=== PATIENT | female | born 1970 | race Caucasian/White ===

== ENCOUNTER 2017-06-07 13:05 | Emergency (ER) | payer OTHER ==
[~2017-06-07] VITALS: Ht 160 cm; Wt 56.0 kg
[2017-06-07 13:17] VITALS: BP 146/89; PULSE 58; RESP 24; TEMP 97.8; O2SAT 99
[2017-06-07] MEDS ORDERED: SYNT25TA PO (13:43)
[2017-06-07] MEDS ORDERED: MIDAZOLAM HCL 5 MG/5 ML VIAL IV PUSH ONE (13:45)
[2017-06-07] MEDS ORDERED: MORPHINE SULFATE 4 MG/ML INJ IV PUSH ONE (13:45)
--- NOTE | 2017-06-07 13:55 | PD ---
HPI Chief Complaint: Facial Pain or Swelling Time Seen by Provider: 13:40 Travel History International Travel<30 days: No Contact w/Intl Traveler<30days: No Traveled to known affect area: No History of Present Illness HPI This is a 46-year-old female who presents with family members for evaluation of inability to close mouth. Symptoms started today [place] swimming [place] the beach. She reports multiple episodes of and fibular dislocation in the past, typically secondary to seizures. She had no seizure today. This dislocation was spontaneous. She is having some discomfort associated with it. Denies any facial trauma. She has no other complaints at this time. [facility] Past Medical History ?: Not LMP: now Social History Alcohol Use: No Tobacco Use: No Substance Use: No Allergies-Medications (Allergen,Severity, Reaction): Coded Allergies: Morphine (Verified Allergy, Severe, 06/07/17) Reported Meds & Prescriptions Reported Meds & Active Scripts Active Reported Synthroid (Levothyroxine Sodium) 25 Mcg Tab 25 Mcg PO DAILY Review of Systems Except as stated in HPI: all other systems reviewed are Neg Physical Exam Narrative GENERAL: Well-developed well-nourished female who appears uncomfortable. SKIN: Warm and dry. HEAD: Atraumatic. Normocephalic. EYES: Pupils equal and round. No scleral icterus. No injection or drainage. ENT: No nasal bleeding or discharge. Mucous membranes pink and moist. The patient's jaw is locked in open position. NECK: Trachea midline. No JVD. CARDIOVASCULAR: Regular rate and rhythm. No murmur appreciated. RESPIRATORY: No accessory muscle use. Clear to auscultation. Breath sounds equal bilaterally. GASTROINTESTINAL: Abdomen soft, non-tender, nondistended. Hepatic and splenic margins not palpable. MUSCULOSKELETAL: No obvious deformities. No clubbing. No cyanosis. No edema. NEUROLOGICAL: Awake and alert. No obvious cranial nerve deficits. Motor grossly within normal limits. Normal speech. PSYCHIATRIC: Appropriate mood and affect; insight and judgment normal. Data Data Last Documented VS Vital Signs Date Time Temp Pulse Resp B/P Pulse Ox O2 Delivery O2 Flow Rate FiO2 06/07/17 14:50 100 2.00 06/07/17 14:41 52 20 142/68 06/07/17 13:17 97.8 Room Air Orders Midazolam Inj (Versed Inj) (06/07/17 13:45) Iv Access Insert/Monitor (06/07/17 13:42) Morphine Inj (Morphine Inj) (06/07/17 13:45) Midazolam Inj (Versed Inj) (06/07/17 14:00) Oximetry (06/07/17 14:07) Diphenhydramine Inj (Benadryl Inj) (06/07/17 14:15) Methylprednisolone So Succ Inj (Solumedr (06/07/17 14:15) Famotidine Inj (Pepcid Inj) (06/07/17 14:15) Sodium Chloride 0.9% Flush (Ns Flush) (06/07/17 14:15) Diphenhydramine Inj (Benadryl Inj) (06/07/17 14:08) MDM Medical Decision Making Medical Screen Exam Complete: Yes Emergency Medical Condition: Yes Medical Record Reviewed: Yes Differential Diagnosis Mandibular dislocation, masseter muscle spasm, fracture, tetanus Narrative Course This is a 46-year-old female who 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 She since with a spontaneous mandibular dislocation that occurred today while at the beach. The patient signed consent forms and closed reduction was achieved under sedation, please see Dr. Stratton's procedural note. She developed a small amount of hives around the IV site on the left arm after the administration of morphine. She was given H1 and H2 antihistamines and Solu -Medrol with improvement in her symptoms. She was monitored for some time. She is stable for discharge. Diagnosis Primary Impression: Closed dislocation of mandible Qualified Code: S03.00XA - Closed dislocation of mandible, initial encounter Additional Impression: Hives Additional Instructions: Follow-up with primary care physician. Return for any emergent medical conditions. Med/Other Pt SpecificInfo: No Change to Meds Disposition: 01 DISCHARGE HOME Condition: Stable Alberto Hernandes Jun 07, 2017 13:55
[2017-06-07] MEDS ORDERED: MIDAZOLAM HCL 5 MG/ML VIAL (1 ML) IV PUSH ONE (14:00)
[2017-06-07] MEDS ORDERED: diphenhydrAMINE HCL 50 MG/ML VIAL ONE (14:08)
[2017-06-07] MEDS ORDERED: methylPREDNISolone SOD SUCC 125 MG/2 ML VIAL IVP ONE (14:15)
[2017-06-07] MEDS ORDERED: diphenhydrAMINE HCL 50 MG/ML VIAL IVP ONE (14:15)
[2017-06-07] MEDS ORDERED: SODIUM CHLORIDE 0.9% FLUSH 10 ML FLUSH IV FLUSH PRN (14:15)
[2017-06-07] MEDS ORDERED: FAMOTIDINE 20 MG/2 ML VIAL IV PUSH ONE (14:15)
[2017-06-07 14:18] VITALS: O2SAT 98
[2017-06-07 14:41] VITALS: BP 142/68; PULSE 52; RESP 20; O2SAT 100
--- NOTE | 2017-06-07 14:47 | PD ---
Physical Exam Narrative I was asked by my orthotic assistant to reduce the mandible dislocation. Data Data Last Documented VS Vital Signs Date Time Temp Pulse Resp B/P Pulse Ox O2 Delivery O2 Flow Rate FiO2 06/07/17 14:41 52 20 142/68 100 06/07/17 13:17 97.8 Room Air Orders Midazolam Inj (Versed Inj) (06/07/17 13:45) Iv Access Insert/Monitor (06/07/17 13:42) Morphine Inj (Morphine Inj) (06/07/17 13:45) Midazolam Inj (Versed Inj) (06/07/17 14:00) Oximetry (06/07/17 14:07) Diphenhydramine Inj (Benadryl Inj) (06/07/17 14:15) Methylprednisolone So Succ Inj (Solumedr (06/07/17 14:15) Famotidine Inj (Pepcid Inj) (06/07/17 14:15) Sodium Chloride 0.9% Flush (Ns Flush) (06/07/17 14:15) Diphenhydramine Inj (Benadryl Inj) (06/07/17 14:08) [facility] Supervised Visit with CLARICE: Yes Procedures Procedure Narrative Conscious sedation procedure: Patient was connected to cardiac cath technician and pulse oximetry monitor. O2 2 L nasal cannula given. IV access established. Morphine 2 mg IV given. Patient developed a small area of rash on the left arm. Benadryl 50 may gram IV given. Percocet 5 mg IV given. Patient was sufficiently sedated. Jaw dislocation was reduced without complication. Patient was able to talk and free of pain subsequently. Sedation procedure: IV established. Patient was put on pulse oximetry and cardiac cath technician. Patient was given Percocet milligrams IV. Patient was sufficiently sedated. Mandible Dislocation reduction procedure done. Patient workup in stable condition. Total sedation time 30 minutes. Diagnosis Primary Impression: Closed dislocation of mandible Qualified Code: S03.00XA - Closed dislocation of mandible, initial encounter Additional Impression: Hives Additional Instruction: Follow-up with primary care physician. Return for any emergent medical conditions. Disposition: 01 DISCHARGE HOME Condition: Stable Marciano Stratton MD Jun 07, 2017 14:47
[2017-06-07 14:50] VITALS: O2SAT 100
== END 2017-06-07 15:26 | disposition home or self-care (01) ==
LOC: NEPC 13:05
DX: S03.00XA Dislocation of jaw, unspecified side, initial encounter (principal); L50.9 Urticaria, unspecified; Y93.11 Activity, swimming; Y92.832 Beach as the place of occurrence of the external cause
CPT/HCPCS: 21480; 96374; 96375; 99156; 99157; 99285; J1200; J2250; J2270; J2930